=== PATIENT | male | born 1995 | race Caucasian/White ===

== ENCOUNTER 2019-10-15 03:25 | Emergency (ER) | payer OTHER ==
--- NOTE | 2019-10-15 03:55 | PDOC ---
Attending Attestation - Resident Resident Name: TammyRaolorenaSamlymatthew - ED Attending Attestation I have performed the following: I have examined & evaluated the patient, The case was reviewed & discussed with the resident, I agree w/resident's findings & plan - HPI HPI: 10/15/19 04:00 Pt comes with CP - Physicial Exam PE: 10/15/19 04:00 Normal exam Agree with resident exam - Medical Decision Making 10/15/19 05:33 Pt is obese; all labs are normal; HCT is elevated. Pt dehydrated; he will be given a L of saline and he will be discharged home. EKG normal CXR normal Pt;s exam normal He was advised to stop drugs and to eat healthfully Heart Score/ECG Review - ECG Intrepretation Rhythm: Regular Rhythm - [place]: Normal - P and NE Prominent R with upright T in V1 (true posterior PA): No Delta Wave(s) Present: No WPW: No - QRS Poor R Wave Progression: No Q Wave Present: No - ECG Impressions Normal ECG: Yes Non-specific ST Elevation: No Ischemic Changes: No Bradycardia: No Torsades vashti Pointes: No WPW: No
--- NOTE | 2019-10-15 03:55 | PDOC ---
History of Present Illness <Evelia Wright - Last Filed: 10/15/19 05:35> - History of Present Illness Initial Comments: 10/15/19 04:12 23y.o M hx of drug abuse, anxiety, depression and possible bipolar disorder presents to the ER with chest pain and left sided tremors. Chest pain began about 2 hrs ago. He smoked some K2 prior 2 hrs prior to episode. Tremors have now resolved ,but he still feels a pressure like sensation in his chest. Pain is non-radiating not aware of any exacerbating or relieving factors. Similiar incident happened yesterday and resolved. He endorses cough, subjective fever.He denies using any other drugs/pill/alcohol, nausea, vomiting, shortness of breath. <Anisha Whitehead - Last Filed: 10/15/19 06:02> - General Stated Complaint: CHEST DISCOMFORT Time Seen by Provider: 10/15/19 03:53 Past History <Evelia Wright - Last Filed: 10/15/19 05:35> - Past Medical History Asthma: No Cardiac Disorders: No COPD: No Diabetes: No GI Disorders: No Disorders: No HTN: No Kidney Stones: No Seizures: No - Surgical History Abdominal Surgery: No Appendectomy: No Cardiac Surgery: No Cholecystectomy: No Lung Surgery: No Neurologic Surgery: No Orthopedic Surgery: No - Reproductive History Testicular Surgery: No - Immunization History Immunization Up to Date: Yes - Psycho Social/Smoking Cessation Hx Smoking Status: No Smoking History: Current every day smoker Have you smoked in the past 12 months: Yes Number of Cigarettes Smoked Daily: 20 'Breaking Loose' booklet given: 02/22/16 Hx Alcohol Use: No Drug/Substance Use Hx: Yes Substance Use Type: Heroin Hx Substance Use Treatment: No <Anisha Whitehead - Last Filed: 10/15/19 06:02> - Past Medical History Allergies/Adverse Reactions: Allergies Allergy/AdvReac Type Severity Reaction Status Date / Time No Known Allergies Allergy Verified 02/22/16 21:32 Home Medications: Ambulatory Orders NK [No Known Home Medication] 02/22/16 Review of Systems - Review of Systems Constitutional: Yes: Fever. No: Chills HEENTM: No: Eye Pain, Blurred Vision Respiratory: Yes: Cough, Wheezing Cardiac (ROS): Yes: Palpitations. No: Lightheadedness ABD/GI: No: Nausea, Vomiting : No: Burning, Dysuria Musculoskeletal: No: Back Pain, Muscle Weakness Integumentary: No: Bruising, Change in Color Neurological: No: Headache, Numbness Psychiatric: Yes: Anxiety, Depression Hematologic/Lymphatic: No: Anemia, Easy Bleeding <Anisha Whitehead - Last Filed: 10/15/19 06:02> *Physical Exam - Vital Signs Last Vital Signs Temp Pulse Resp BP Pulse Ox 98.3 F 77 18 132/61 98 10/15/19 03:25 10/15/19 03:25 10/15/19 03:25 10/15/19 03:25 10/15/19 03:25 <Evelia Wright - Last Filed: 10/15/19 05:35> - Physical Exam Comments: 10/15/19 04:21 PE: GENERAL: Awake, alert, and fully oriented, in no acute distress HEAD: No signs of trauma, normocephalic, atraumatic EYES: EOMI, sclera anicteric, conjunctiva clear ENT: Auricles normal inspection, hearing grossly normal, nares patent, oropharynx clear without exudates. Moist mucosa NECK: Normal ROM, supple, JVD, or masses LUNGS: No distress, speaks full sentences, wheezing in both lung guzman. HEART: Regular rate and rhythm, normal S1 and S2, no murmurs, rubs or gallops, ABDOMEN: Soft, nontender, normoactive bowel sounds. EXTREMITIES : Normal inspection, Normal range of motion, no edema. No clubbing or cyanosis NEUROLOGICAL: Cranial nerves II through XII grossly intact. Normal speech, normal gait, no focal sensorimotor deficits SKIN: Warm, Dry, normal turgor, no rashes or lesions noted <Anisha Whitehead - Last Filed: 10/15/19 06:02> ED Treatment Course - LABORATORY CBC & Chemistry Diagram: 10/15/19 04:30 10/15/19 04:30 - ADDITIONAL ORDERS Additional order review: Laboratory Results 10/15/19 10/15/19 04:30 04:30 Sodium 138 Potassium 3.9 Chloride 107 Carbon Dioxide 29 Anion Gap 2 L BUN 9.5 Creatinine 0.9 Est GFR (CKD-EPI)AfAm 140.02 Est GFR (CKD-EPI)NonAf 120.81 Random Glucose 98 Calcium 9.1 Total Bilirubin 0.8 AST 22 ALT 51 Alkaline Phosphatase 117 Creatine Kinase 91 Troponin I < 0.02 Total Protein 7.4 Albumin 4.0 10/15/19 04:30 RBC 5.31 MCV 93.3 MCHC 33.6 RDW 13.5 MPV 7.7 Neutrophils % 72.1 Lymphocytes % 16.9 Monocytes % 8.2 Eosinophils % 2.3 Basophils % 0.5 - Medications Given in the ED: ED Medications Discontinued Medications Generic Name Dose Route Start Last Admin Trade Name Freq PRN Reason Stop Dose Admin Albuterol/Ipratropium 1 amp 10/15/19 04:24 10/15/19 05:00 Duoneb - NEB 10/15/19 04:25 Not Given ONCE ONE Sodium Chloride 1,000 ml 10/15/19 05:23 10/15/19 05:28 Normal Saline - IV 10/15/19 05:24 1,000 ml ONCE ONE Administration <Evelia Wright - Last Filed: 10/15/19 05:35> - LABORATORY CBC & Chemistry Diagram: 10/15/19 04:30 10/15/19 04:30 <Anisha Whitehead - Last Filed: 10/15/19 06:02> Medical Decision Making - Medical Decision Making 10/15/19 04:23 23y.o M hx of drug abuse, anxiety, depression and possible bipolar disorder presents to the ER with chest pain and left sided tremor cbc, cmp, utox, ekg, troponin, cpk, cxr, 10/15/19 04:27 EKG: normal sinus rhythm, rightward axis , borderline EKG <Anisha Whitehead - Last Filed: 10/15/19 06:02> Discharge - Discharge Information Problems reviewed: Yes <Evelia Wright - Last Filed: 10/15/19 05:35> - Discharge Information Problems reviewed: Yes - Admission No <Anisha Whitehead - Last Filed: 10/15/19 06:02> - Discharge Information Clinical Impression/Diagnosis: Polysubstance (excluding opioids) dependence Obesity Qualifiers: Obesity type: unspecified obesity type Obesity classification: unspecified obesity classification Serious obesity comorbidity presence: without serious comorbidity Qualified Code(s): E66.9 - Obesity, unspecified Condition: Stable Disposition: HOME - Patient Discharge Instructions Patient Printed Discharge Instructions: Eating a Diet Rich in Fruits and Vegetables, Overweight in Adults, Substance Use Disorder
[2019-10-15 04:08] VITALS: BP 132/61; PULSE 77; TEMP 98.3; BMI 28.6
[2019-10-15] MEDS ORDERED: ALBUTEROL SO4 2.5/IPRATROPIUM 0.5 INH SOL 3 ML VIAL.NEB. NEB ONE (04:24)
[2019-10-15 04:49] LABS: BASO % 0.5 % (0-2.0); EOS % 2.3 % (0-4.5); HEMATOCRIT 49.6 % (35.4-49); HEMOGLOBIN 16.7 GM/dL (11.7-16.9); LYMPH % 16.9 % (8-40); MCH 31.4 pg (25.7-33.7); MCHC 33.6 g/dl (32.0-35.9); MEAN CELL VOLUME 93.3 fl (80-96); MEAN PLT VOLUME 7.7 fl (7.5-11.1); MONO % 8.2 % (3.8-10.2); NEUT % 72.1 % (42.8-82.8); PLATELET COUNT 287 K/MM3 (134-434); RBC 5.31 M/mm3 (4.00-5.60); RDW 13.5 % (11.9-15.9); WHITE BLOOD COUNT 10.3 K/mm3 (4.0-10.0)
[2019-10-15 05:16] LABS: BILIRUBIN,TOTAL 0.8 mg/dL (0.2-1); BLOOD UREA NITROGEN 9.5 mg/dL (7-18); CALCIUM 9.1 mg/dL (8.5-10.1); CREATININE 0.9 mg/dL (0.55-1.3); POTASSIUM 3.9 mmol/L (3.5-5.1); TOT PROT 7.4 g/dl (6.4-8.2)
[2019-10-15] MEDS ORDERED: SODIUM CHLORIDE 0.9% 500 ML INFUS.BAG IV ONE (05:23)
[2019-10-15 07:22] LABS: COCAINE, UR NEGATIVE ng/ml (CUTOFF=300); METHADONE, UR NEGATIVE ng/ml (CUTOFF=300); OPIATES, URI NEGATIVE ng/ml (CUTOFF=300); PHENCYCLIDINE,URINE NEGATIVE ng/ml (CUTOFF=25); URINE AMPHETAMINES NEGATIVE ng/ml (CUTOFF=500); URINE BARBITURATES NEGATIVE ng/ml (CUTOFF=200); URINE BENZODIAZEPINES NEGATIVE ng/ml (CUTOFF=200)
--- NOTE | 2019-10-15 13:46 | EKG ---
Test Reason : Blood Pressure : / mmHG Vent. Rate : 074 BPM Atrial Rate : 074 BPM P-R Int : 156 ms QRS Dur : 086 ms QT Int : 376 ms P-R-T Axes : 062 085 027 degrees QTc Int : 417 ms NORMAL SINUS RHYTHM WITH SINUS ARRHYTHMIA NORMAL ECG WHEN COMPARED WITH ECG OF 12-JUN-2011 02:41, PREVIOUS ECG IS PRESENT Confirmed by MD Yvan, Jozef ([id number]) on 10/15/2019 1:45:37 PM Referred By: Confirmed By:Jozef Santoro MD
== END 2019-10-15 06:23 | disposition home or self-care (01) ==
LOC: JER 03:25
DX: F19.20 Other psychoactive substance dependence, uncomplicated (principal); R25.1 Tremor, unspecified; E66.9 Obesity, unspecified; Z68.28 Body mass index [BMI] 28.0-28.9, adult; F41.8 Other specified anxiety disorders; F32.9 Major depressive disorder, single episode, unspecified; F17.210 Nicotine dependence, cigarettes, uncomplicated
CPT/HCPCS: 36415; 71045-TC-FY; 80053; 80307; 82550; 84484; 85025; 93005; 93010; 99284-25

== ENCOUNTER 2019-12-24 02:24 | Emergency (ER) | payer OTHER ==
[2019-12-24 02:38] VITALS: TEMP 97.1; BMI 26.6
--- NOTE | 2019-12-24 02:50 | PDOC ---
Attending Attestation - Resident Resident Name: Abdi Kumar - ED Attending Attestation I have performed the following: I have examined & evaluated the patient, The case was reviewed & discussed with the resident, I agree w/resident's findings & plan - HPI HPI: 12/24/19 04:24 Pt comes with palpitations and a feeling that his heart is coming out of his chest. He has no other complaints. States that he used ecstasy and wants to make sure he is ok. - Physicial Exam PE: 12/24/19 04:25 Normal exam Normal vitals Heart [id number] Lungs CTAb abd soft NT ND +BS no flank pain - Medical Decision Making 12/24/19 04:25 EKG NSR; pt reassured We will not draw labs, as pt has normal labs from back in Nov as well as CXR that is normal Heart Score/ECG Review - ECG Intrepretation Rhythm: Regular Rhythm - Ogema Ogema: Normal - P and VT Delta Wave(s) Present: No WPW: No - QRS Poor R Wave Progression: No Q Wave Present: No - ST and T Early Repolarization: No Non Specific ST-T Wave changes: No Flattened T Waves: No Prolonged Q-T Interval: No - ECG Impressions Normal ECG: Yes Non-specific ST Elevation: No Ischemic Changes: No Bradycardia: No Torsades vashti Pointes: No WPW: No
--- NOTE | 2019-12-24 03:45 | PDOC ---
History of Present Illness <Evelia Wright - Last Filed: 12/24/19 04:22> - General History Source: Patient Exam Limitations: No Limitations - History of Present Illness Initial Comments: 12/24/19 03:38 24 yo male pmh multiple substance abuse including Heroin, extacy and marijuana ( non IV drug abuser) presents to the ED for chest palpitations and feeling flushed. Pt states he took 3 pills of extacy today, noted palpitations and feeling flushed that resolved prior to EMS arrival. Symptoms have not recurred, pt states he feels well and is at baseline. Pt admits to similar episode 2 days ago after using extacy and K2, went to [facility] and was discharged after resolution of symptoms. Denies recent illness, F/C/N/V, hx or fhx of cardiac conditions, back pain, abdominal pain, SOB, changes in bowel or bladder habits <Abdi Kumar - Last Filed: 12/24/19 04:31> - General Chief Complaint: Chest Pain Stated Complaint: DRUG INGESTION/PALPITATIONS Time Seen by Provider: 12/24/19 02:39 Past History <Evelia Wright - Last Filed: 12/24/19 04:22> - Past Medical History Asthma: No Cardiac Disorders: No COPD: No Diabetes: No GI Disorders: No Disorders: No HTN: No Kidney Stones: No Seizures: No - Surgical History Abdominal Surgery: No Appendectomy: No Cardiac Surgery: No Cholecystectomy: No Lung Surgery: No Neurologic Surgery: No Orthopedic Surgery: No - Reproductive History Testicular Surgery: No - Immunization History Immunization Up to Date: Yes - Psycho Social/Smoking Cessation Hx Smoking Status: No Smoking History: Unknown if ever smoked Have you smoked in the past 12 months: Yes Number of Cigarettes Smoked Daily: 20 'Breaking Loose' booklet given: 02/22/16 Hx Alcohol Use: Yes Drug/Substance Use Hx: Yes Substance Use Type: Heroin Hx Substance Use Treatment: No <Abdi Kumar - Last Filed: 12/24/19 04:31> - Past Medical History Allergies/Adverse Reactions: Allergies Allergy/AdvReac Type Severity Reaction Status Date / Time No Known Allergies Allergy Verified 02/22/16 21:32 Home Medications: Ambulatory Orders NK [No Known Home Medication] 02/22/16 Review of Systems - Review of Systems Constitutional: No: Chills, Fever HEENTM: No: Blurred Vision, Double Vision Respiratory: No: Shortness of Breath Cardiac (ROS): Yes: Palpitations (resolved). No: Chest Pain, Syncope ABD/GI: No: Constipated, Diarrhea, Nausea, Vomiting : No: Burning, Dysuria, Frequency, Flank Pain Musculoskeletal: No: Back Pain Integumentary: No: Change in Color Neurological: No: Headache, Numbness, Paresthesia, Weakness <Abdi Kumar - Last Filed: 12/24/19 04:31> *Physical Exam - Vital Signs Last Vital Signs Temp Pulse Resp BP Pulse Ox 97.1 F L 96 H 18 160/99 99 12/24/19 02:34 12/24/19 02:34 12/24/19 02:34 12/24/19 02:34 12/24/19 02:34 <Evelia Wright - Last Filed: 12/24/19 04:22> - Vital Signs Last Vital Signs Temp Pulse Resp BP Pulse Ox 97.1 F L 96 H 18 160/99 99 12/24/19 02:34 12/24/19 02:34 12/24/19 02:34 12/24/19 02:34 12/24/19 02:34 - Physical Exam General Appearance: Yes: Nourished, Appropriately Dressed. No: Apparent Distress HEENT: positive: EOMI, ALLI Neck: positive: Supple. negative: Carotid bruit Respiratory/Chest: positive: Lungs Clear, Normal Breath Sounds. negative: Respiratory Distress, Accessory Muscle Use, Rapid RR, Crackles, Rales, Rhonchi, Stridor, Wheezing Cardiovascular: positive: Regular Rhythm, Regular Rate, S1, S2. negative: Edema , JVD, Murmur Vascular Pulses: Dorsalis-Pedis (R): 4+, Doralis-Pedis (L): 4+ Gastrointestinal/Abdominal: positive: Flat, Soft. negative: Pulsatile Mass, Protuberent, Distended, Guarding, Rebound, Tenderness Musculoskeletal: negative: CVA Tenderness Extremity: positive: Normal Capillary Refill, Normal Inspection, Normal Range of Motion Integumentary: positive: Normal Color, Dry, Warm Neurologic: positive: Fully Oriented, Alert, Normal Mood/Affect, Normal Response <Abdi Kumar - Last Filed: 12/24/19 04:31> Medical Decision Making - Medical Decision Making 12/24/19 03:45 24 yo male pmh multiple substance abuse including Heroin, extacy and marijuana ( non IV drug abuser) presents to the ED for chest palpitations and feeling flushed. Pt states he took 3 pills of extacy today, noted palpitations and feeling flushed that resolved prior to EMS arrival. Symptoms have not recurred, pt states he feels well and is at baseline. Pt admits to similar episode 2 days ago after using extacy and K2, went to [facility] and was discharged after resolution of symptoms. Denies recent illness, F/C/N/V, hx or fhx of cardiac conditions, back pain, abdominal pain, SOB, changes in bowel or bladder habits vitals WNL Pt well appearing, states symptoms resolved and feels well to go home Pending EKG No labs indicated at this time due to resolution of symptoms, no CP and likely cause of symptoms 12/24/19 04:28 Pt seen 09/2019 for similar episode, labs WNL including trops and CXR. EKG today NSR without signs of ischemia Pt safe for DC home, strict return precautions and cardiology f/u <Abdi Kumar - Last Filed: 12/24/19 04:31> Discharge - Discharge Information Problems reviewed: Yes - Admission No <Evelia Wright - Last Filed: 12/24/19 04:22> - Discharge Information Problems reviewed: Yes - Admission No <Abdi Kumar - Last Filed: 12/24/19 04:31> - Discharge Information Clinical Impression/Diagnosis: Polysubstance (excluding opioids) dependence, Anxiety, Palpitations Condition: Stable Disposition: HOME - Follow up/Referral Referrals: Carmelo Franco MD [Staff Physician] - - Patient Discharge Instructions Patient Printed Discharge Instructions: DI for Atypical Chest Pain, DI for Palpitations Additional Instructions: Please see your Primary Doctor within the next 48 hours. Stop using non prescribed street drugs. If you have any questions, concerns or if you need assistance, the ER is always open and ready to help you. Call to make an appointment with the Prop Maker referred to you. Return to the ER immediatly for new or concerning symptoms including but not limited to: chest pain, difficulty breathing. Thank you
[2019-12-24 04:23] VITALS: BP 140/78; PULSE 84
--- NOTE | 2019-12-24 13:56 | EKG ---
Test Reason : Blood Pressure : / mmHG Vent. Rate : 082 BPM Atrial Rate : 082 BPM P-R Int : 140 ms QRS Dur : 104 ms QT Int : 354 ms P-R-T Axes : 080 106 041 degrees QTc Int : 413 ms NORMAL SINUS RHYTHM RIGHTWARD AXIS LEFT VENTRICULAR HYPERTROPHY ABNORMAL ECG Confirmed by MD MANUEL, YANETH ([id number]) on 12/24/2019 1:55:42 PM Referred By: Confirmed By:YANETH JACKSON MD
== END 2019-12-24 04:24 | disposition home or self-care (01) ==
LOC: JER 02:24
DX: F19.10 Other psychoactive substance abuse, uncomplicated (principal); F16.10 Hallucinogen abuse, uncomplicated; F41.9 Anxiety disorder, unspecified; R00.2 Palpitations
CPT/HCPCS: 93005; 93010; 99283-25

== ENCOUNTER 2019-12-26 16:59 | Emergency (ER) | payer OTHER ==
[2019-12-26 17:18] VITALS: TEMP 98.6; BMI 27.3
--- NOTE | 2019-12-26 18:22 | PDOC ---
History of Present Illness - General Chief Complaint: Substance Abuse Stated Complaint: ADVERSE DRUG REACTION Time Seen by Provider: 12/26/19 18:12 - History of Present Illness Initial Comments: 24 year old Male with PMH of poly substance abuse and multiple psychiatric/ behavioral pathologies presenting for weakness and anxiety directly after smoking a marijuana "blunt". States that he started to smoke and began thinking "loudly" and started feel his mind raced In our ED he states he wasn't feeling well and experienced worsening anxiety and palpitations and decided to lay himself down on the floor. This was witnessed by multiple staff members and there was no mention of head trauma, collapse, or other concerning features. Patient was sleeping when I walked into the room, conversational, and back to his baseline. Denied any current palpitations, chest pains, headache, weakness, or other symptoms. 12/27/19 09:35 Past History - Past Medical History Allergies/Adverse Reactions: Allergies Allergy/AdvReac Type Severity Reaction Status Date / Time No Known Allergies Allergy Verified 02/22/16 21:32 Home Medications: Ambulatory Orders NK [No Known Home Medication] 02/22/16 Asthma: No Cardiac Disorders: No COPD: No Diabetes: No GI Disorders: No Disorders: No HTN: No Kidney Stones: No Seizures: No - Surgical History Abdominal Surgery: No Appendectomy: No Cardiac Surgery: No Cholecystectomy: No Lung Surgery: No Neurologic Surgery: No Orthopedic Surgery: No - Reproductive History Testicular Surgery: No - Immunization History Immunization Up to Date: Yes - Psycho Social/Smoking Cessation Hx Smoking Status: No Smoking History: Never smoked Have you smoked in the past 12 months: No Number of Cigarettes Smoked Daily: 20 Information on smoking cessation initiated: No 'Breaking Loose' booklet given: 02/22/16 Hx Alcohol Use: Yes Drug/Substance Use Hx: Yes Substance Use Type: Heroin Hx Substance Use Treatment: No Review of Systems - Review of Systems Able to Perform ROS?: Yes Constitutional: Yes: Weakness. No: Chills, Diaphoresis, Fever HEENTM: No: Double Vision, Ear Discharge, Hearing Loss Respiratory: No: Cough, Orthopnea, Shortness of Breath, Wheezing Cardiac (ROS): Yes: Palpitations. No: Chest Pain, Edema, Chest Tightness ABD/GI: No: Nausea, Vomiting : No: Burning, Dysuria, Discharge Musculoskeletal: Yes: Muscle Weakness. No: Joint Pain Integumentary: No: Dryness, Erythema Neurological: Yes: Weakness. No: Headache, Numbness, Tingling Psychiatric: Yes: Anxiety, Depression, Emotional Problems, Mood Swings *Physical Exam - Vital Signs Last Vital Signs Temp Pulse Resp BP Pulse Ox 98.6 F 93 H 22 H 122/91 96 12/26/19 17:07 12/26/19 17:07 12/26/19 17:07 12/26/19 17:07 12/26/19 17:07 - Physical Exam General Appearance: Yes: Nourished, Appropriately Dressed. No: Apparent Distress HEENT: positive: Normal ENT Inspection, Normal Voice, Pharynx Normal Neck: positive: Normal Thyroid. negative: Tender, Rigid, Supple Respiratory/Chest: positive: Lungs Clear, Normal Breath Sounds. negative: Chest Tender, Respiratory Distress, Accessory Muscle Use Cardiovascular: positive: Regular Rhythm, Regular Rate Gastrointestinal/Abdominal: positive: Normal Bowel Sounds, Flat, Soft. negative : Tender, Guarding Musculoskeletal: positive: Normal Inspection. negative: Decreased Range of Motion Extremity: positive: Normal Capillary Refill, Normal Inspection, Normal Range of Motion, Pelvis Stable. negative: Tender Integumentary: positive: Normal Color, Dry, Warm, Bruising Neurologic: positive: Fully Oriented, Alert, Normal Mood/Affect, Normal Response , Motor Strength 5/5 Deep Tendon Reflexes: Knee (L): 1+ Medical Decision Making - Medical Decision Making 24 year old male with poysbstance abuse presenting for anxiety and palpitations. First EKG with lead misplacement (inversions in V2) so repeat EKG performed demonstrating rate 67, ND 150 , QRS 90, QTc 412 , normal axis with mild t wave flattening compared to EKG from 4-5 months prior. . Patient is much improved and will go home, rest, and then go to detox afterwards. 12/26/19 18:57 Discharge - Discharge Information Problems reviewed: Yes Clinical Impression/Diagnosis: Marijuana use Condition: Stable Disposition: HOME - Admission No - Follow up/Referral Referrals: VANESA CHINO [Provider Group] - Patient Discharge Instructions Patient Printed Discharge Instructions: DI for Palpitations Additional Instructions: Please stop smoking marijuana or using other drugs. Please go to detox tomorrow. Please set up an appointment for the primary care physician to follow up for your EKG. Please return to the ED if you have any new or worsening problems. - Post Discharge Activity
--- NOTE | 2019-12-26 19:07 | PDOC ---
Documentation entered by Divine Rodriguez SCRIBE, acting as scribe for Joyce Frazier MD. Joyce Frazier MD: This documentation has been prepared by the Jennifer richard Nirvannie, SCRIBE, under my direction and personally reviewed by me in its entirety. I confirm that the documentation accurately reflects all work, treatment, procedures, and medical decision making performed by me. Attending Attestation - Resident Resident Name: Florinda Walls - ED Attending Attestation I have performed the following: I have examined & evaluated the patient, The case was reviewed & discussed with the resident, I agree w/resident's findings & plan, Exceptions are as noted - HPI HPI: 12/26/19 18:39 The patient is a 24 year old male, with a significant past medical history of multiple substance abuse including Heroin, ecstasy and marijuana (non IV drug abuser), who presents to the emergency department with palpitations. - Physicial Exam PE: 12/26/19 18:39 GENERAL: Well-appearing, well-nourished. No apparent distress. HEENT: Normocephalic, atraumatic. PERRL, EOM intact. CARDIOVASCULAR: Normal S1, S2. Regular rate and rhythm. PULMONARY: Clear to auscultation bilaterally. ABDOMEN: Soft, non-distended, non-tender. EXTREMITIES: Normal ROM in all four extremities. No gross deformities. SKIN: Warm, dry. No rash NEUROLOGICAL: No focal neurological deficits. - Medical Decision Making 12/26/19 19:05 EKG does not show any signs of acute ischemia Patient has been using street drugs rather than taking his prescription medicines for his mood disorder Patient was encouraged to follow-up with [facility] outpatient treatment center for his bipolar symptoms At this time he has no acute jomar and no suicidal ideation
[2019-12-26 19:23] VITALS: BP 122/69; PULSE 87
--- NOTE | 2019-12-27 11:38 | EKG ---
Test Reason : Blood Pressure : / mmHG Vent. Rate : 080 BPM Atrial Rate : 080 BPM P-R Int : 144 ms QRS Dur : 092 ms QT Int : 374 ms P-R-T Axes : 074 095 048 degrees QTc Int : 431 ms NORMAL SINUS RHYTHM RIGHTWARD AXIS BORDERLINE ECG WHEN COMPARED WITH ECG OF 24-DEC-2019 03:34, ST NO LONGER ELEVATED IN ANTERIOR LEADS Confirmed by Linus Pena MD ([id number]) on 12/27/2019 11:38:11 AM Referred By: Confirmed By:Linus Pena MD
--- NOTE | 2019-12-27 11:38 | EKG ---
Test Reason : Blood Pressure : / mmHG Vent. Rate : 067 BPM Atrial Rate : 067 BPM P-R Int : 150 ms QRS Dur : 090 ms QT Int : 390 ms P-R-T Axes : 068 089 045 degrees QTc Int : 412 ms NORMAL SINUS RHYTHM NORMAL ECG Confirmed by Linus Pena MD ([id number]) on 12/27/2019 11:37:52 AM Referred By: Confirmed By:Linus Pena MD
== END 2019-12-26 19:20 | disposition home or self-care (01) ==
LOC: JER 16:59
DX: F12.10 Cannabis abuse, uncomplicated (principal); R00.2 Palpitations; F41.9 Anxiety disorder, unspecified
CPT/HCPCS: 93005; 93010; 99282-25

== ENCOUNTER 2020-01-03 20:21 | Emergency (ER) | payer OTHER ==
[2020-01-03 20:58] VITALS: TEMP 98.1; BMI 26.3
--- NOTE | 2020-01-03 22:22 | PDOC ---
History of Present Illness - General Chief Complaint: Palpitations Stated Complaint: PALPITATIONS Time Seen by Provider: 01/03/20 22:13 - History of Present Illness Initial Comments: 01/03/20 22:26 The patient is a 24 year old male with a history of polysubstance abuse, alcohol use, anxiety who presents for evaluation of palpitations. The patient reports smoking marijuana and using alcohol earlier today. He noted an episode of anxiety with associated palpitations at that time that has since resolved prompting his presentation to the ED for further evaluation. He states that he is currently asymptomatic. He has had several similar presentations in the past with negative work ups. The patient otherwise denies fevers, chills, SOB, chest pain, nausea, vomiting, abdominal pain, or changes with urination or bowel movements. Past History - Past Medical History Allergies/Adverse Reactions: Allergies Allergy/AdvReac Type Severity Reaction Status Date / Time No Known Allergies Allergy Verified 01/03/20 20:58 Home Medications: Ambulatory Orders NK [No Known Home Medication] 02/22/16 Asthma: No Cardiac Disorders: No COPD: No Diabetes: No GI Disorders: No Disorders: No HTN: No Kidney Stones: No Seizures: No - Surgical History Abdominal Surgery: No Appendectomy: No Cardiac Surgery: No Cholecystectomy: No Lung Surgery: No Neurologic Surgery: No Orthopedic Surgery: No - Reproductive History Testicular Surgery: No - Immunization History Immunization Up to Date: Yes - Psycho Social/Smoking Cessation Hx Smoking Status: No Smoking History: Never smoked Have you smoked in the past 12 months: No Number of Cigarettes Smoked Daily: 20 Information on smoking cessation initiated: No 'Breaking Loose' booklet given: 02/22/16 Hx Alcohol Use: No Drug/Substance Use Hx: No Substance Use Type: Heroin Hx Substance Use Treatment: No Review of Systems - Review of Systems Comments:: 01/03/20 22:28 Constitutional: No fevers, chills, fatigue, malaise HEENT: No Rhinorrhea, nasal congestion, visual changes Cardiovascular: Palpitations. No chest pain, syncope, lightheadedness Respiratory: No Cough, SOB, Hemoptysis, Gastrointestinal: No Abdominal pain, Nausea, Vomiting, Constipation, Diarrhea, Melena Genitourinary: No Dysuria, Frequency, Urgency, Hesitancy, Hematuria, Flank pain Musculoskeletal: No Myalgia, arthralgia Skin: No rashes, itching, bruising, pallor Neurologic: No Headache, Dizziness, Numbness, Weakness, or Tingling Psychiatric: No Hallucinations. No SI or HI *Physical Exam - Vital Signs Last Vital Signs Temp Pulse Resp BP Pulse Ox 98.1 F 93 H 18 121/72 100 01/03/20 20:56 01/03/20 20:56 01/03/20 20:56 01/03/20 20:56 01/03/20 20:56 - Physical Exam 01/03/20 22:28 General Appearance: Nourished. No Apparent Distress HEENT: EOMI, ALLI. No Pharyngeal Erythema, Tonsillar Exudate, Tonsillar Erythema Neck: No Cervical Lymphadenopathy Respiratory/Chest: Lungs Clear, Normal Breath Sounds. No Crackles, Rales, Rhonchi, Wheezing Cardiovascular: Regular Rhythm, Regular Rate. No Murmur, Gallops, Rubs Gastrointestinal/Abdominal: Normal Bowel Sounds, Soft. No Guarding, Rebound, Tenderness Musculoskeletal: No CVA Tenderness Extremity: Normal Capillary Refill Integumentary: Normal Color, Dry, Warm Neurologic: Fully Oriented, Alert, Normal Mood/Affect, Normal Response, Heart Score/ECG Review #1 ECG reviewed & interpreted by me at: 22:28 General ECG Interpretation: Sinus Rhythm, Normal Rate, Normal Intervals, No acute ischemic changes Compared to previous ECG there are: No significant change Medical Decision Making - Medical Decision Making 01/03/20 22:29 The patient is a 24 year old male with a history of polysubstance abuse, alcohol use, anxiety who presents for evaluation of palpitations. Given the patient's history and physical exam, it is likely the patient's symptoms were due to an anxiety attack vs. related to his substance use. The patient appears clinically well on exam here and resting comfortable currently asymptomatic. We are comfortable discharging the patient home in stable condition. Patient made aware of impression and plan, return precautions discussed including but not limited to worsening pain or symptoms, fevers, or signs of infection, chest pain, respiratory distress, inability to tolerate oral intake, dehydration, syncope, or neurologic changes. The patient is to follow up with PMD and specialist as recommended within 1 week, follow up information provided and the patient will call for an appointment. The patient is to take medications as instructed for duration of time and continue with supportive care, avoid triggers and precipitants. Patient is safe for outpatient follow-up. Discharge - Discharge Information Problems reviewed: Yes Clinical Impression/Diagnosis: Palpitations, Anxiety Condition: Stable Disposition: HOME - Admission No - Follow up/Referral Referrals: Bimal Ramos MD [Staff Physician] - - Patient Discharge Instructions Patient Printed Discharge Instructions: DI for Palpitations Additional Instructions: 1) Please follow-up with your primary care doctor in the next 2-3 days. Please call tomorrow to schedule a follow up appointment. If you cannot follow up with your doctor within 1 week please return to the Emergency Department for any urgent issues. 2) Your EKG results were normal here in the ER. 3) If you have any worsening of symptoms or any other concerns, please return to the ER immediately. Return if worsening symptoms including fevers, headache, vomiting, visual or hearing disturbances, abdominal pain, chest pain, shortness of breath, syncope, dehydration, inability to take things by mouth/vomiting, altered mental status, or worsening concerning symptoms. 4) Please continue taking your home medications as directed. Side effects may include upset stomach, abdominal pain, vomiting, or diarrhea. Do not drink alcohol with your medications. - Post Discharge Activity
--- NOTE | 2020-01-03 22:23 | PDOC ---
Attending Attestation - Resident Resident Name: Valdemar Watson - ED Attending Attestation I have performed the following: I have examined & evaluated the patient, The case was reviewed & discussed with the resident, I agree w/resident's findings & plan - HPI HPI: 01/03/20 22:22 see resident hpi - Physicial Exam PE: 01/03/20 22:22 see resident exam - Medical Decision Making 01/03/20 22:22 24-year-old male complaining of palpitations after smoking marijuana and ingesting alcohol now resolved Patient is sitting comfortably talking to his friend on the edge of the bed and currently asymptomatic EKG shows no acute changes Will DC with recommended outpatient follow-up
[2020-01-03 23:00] VITALS: BP 122/66; PULSE 89
--- NOTE | 2020-01-04 15:15 | EKG ---
Test Reason : Blood Pressure : / mmHG Vent. Rate : 089 BPM Atrial Rate : 089 BPM P-R Int : 156 ms QRS Dur : 088 ms QT Int : 342 ms P-R-T Axes : 066 082 050 degrees QTc Int : 416 ms NORMAL SINUS RHYTHM NORMAL ECG WHEN COMPARED WITH ECG OF 26-DEC-2019 18:57, NO SIGNIFICANT CHANGE WAS FOUND Confirmed by SEGUN LUGO MD ([id number]) on 01/04/2020 3:15:06 PM Referred By: Confirmed By:SEGUN LUGO MD
== END 2020-01-03 23:01 | disposition home or self-care (01) ==
LOC: JER 20:21
DX: R00.2 Palpitations (principal); F41.9 Anxiety disorder, unspecified; F19.10 Other psychoactive substance abuse, uncomplicated; F10.99 Alcohol use, unspecified with unspecified alcohol-induced disorder
CPT/HCPCS: 93005; 93010; 99283-25

== ENCOUNTER 2021-05-15 19:24 | Emergency (ER) | payer OTHER ==
[2021-05-15 19:35] VITALS: BP 138/79; PULSE 103; TEMP 98.3; BMI 23.1
[2021-05-15] MEDS ORDERED: IBUPROFEN 600 MG TABLET (FP) PO ONE ×2 (20:02→20:28)
== END 2021-05-15 20:50 | disposition home or self-care (01) ==
LOC: JER 19:24 → JERFT 19:24
DX: M79.645 Pain in left finger(s) (principal)
CPT/HCPCS: 73140-TC-LT-FY; 99284-25

== ENCOUNTER 2022-08-13 19:02 | Observation (INO) | payer OTHER ==
[2022-08-13] MEDS ORDERED: ALBUTEROL SO4 2.5/IPRATROPIUM 0.5 INH SOL 3 ML VIAL.NEB. NEB ONE ×3 (19:53→20:54)
[2022-08-13] MEDS ORDERED: DEXAMETHASONE SOD PHOSPHATE 10 MG/1 ML VIAL IVPUSH ONE (20:49)
[2022-08-13] MEDS ORDERED: SODIUM CHLORIDE 0.9% 500 ML INFUS.BAG IV ONE ×2 (20:52→23:16)
[2022-08-13] MEDS ORDERED: DEXAMETHASONE SOD PHOSPHATE 4 MG/1 ML VIAL ONE (20:54)
[2022-08-13 21:55] LABS: VENOUS BASE EXCESS -7.4 mmol/L (-2-2); VENOUS O2 SATURATION 83.6 % (70-80); VENOUS PCO2 25.1 mmHg (38-52); VENOUS PH 7.414 (7.310-7.410)
[2022-08-13 22:04] LABS: HEMATOCRIT 43.8 % (35.4-49); HEMOGLOBIN 14.8 GM/dL (11.7-16.9); MCHC 33.7 g/dl (32.0-35.9); MEAN CELL VOLUME 91.8 fl (80-96); MEAN PLT VOLUME 7.8 fl (7.5-11.1); PLATELET COUNT 261 10^3/uL (134-434); RBC 4.77 M/mm3 (4.00-5.60); RDW 13.1 % (11.9-15.9); WHITE BLOOD COUNT 23.8 K/mm3 (4.0-10.0)
[2022-08-13 22:19] LABS: ALBUMIN 4.2 g/dl (3.4-5.0); CALCIUM 9.4 mg/dL (8.5-10.1)
[2022-08-13 22:22] LABS: CREATININE 0.8 mg/dL (0.55-1.3)
[2022-08-13 22:24] LABS: BILIRUBIN,TOTAL 0.9 mg/dL (0.2-1); TOT PROT 7.6 g/dl (6.4-8.2)
[2022-08-13 23:06] LABS: ANISOCYTOSIS 0; MACROCYTOSIS 0; PLATELET ESTIMATE NORMAL
[2022-08-13] MEDS ORDERED: ALBUTEROL SO4 0.083% IH SOL 2.5 MG/3 ML VIAL.NEB. NEB ONE (23:56)
[2022-08-14] MEDS ORDERED: ALBUTEROL SO4 0.083% IH SOL 2.5 MG/3 ML VIAL.NEB. NEB ONE ×3 (00:07→01:06)
[2022-08-14 00:15] LABS: HEMATOCRIT 42.2 % (35.4-49); HEMOGLOBIN 14.4 GM/dL (11.7-16.9); MCH 31.3 pg (25.7-33.7); MCHC 34.1 g/dl (32.0-35.9); MEAN CELL VOLUME 91.6 fl (80-96); MEAN PLT VOLUME 7.2 fl (7.5-11.1); PLATELET COUNT 245 10^3/uL (134-434); RBC 4.61 M/mm3 (4.00-5.60); RDW 13.1 % (11.9-15.9); WHITE BLOOD COUNT 24.7 K/mm3 (4.0-10.0)
[2022-08-14] MEDS ORDERED: CEFTRIAXONE 1,000 MG in DEXTROSE 5%-WATER - 50 ML IVPB ONE (01:10)
[2022-08-14] MEDS ORDERED: AZITHROMYCIN 500 MG TABLET PO ONE (01:10)
[2022-08-14] MEDS ORDERED: CEFTRIAXONE 1 GM/50 ML BAG ONE (01:13)
[2022-08-14 01:17] LABS: ANISOCYTOSIS 0; MACROCYTOSIS 0
[2022-08-14] MEDS ORDERED: AZITHROMYCIN 500 MG TABLET ONE (01:51)
[2022-08-14 07:42] VITALS: RESP 20; BMI 28.2
[2022-08-14] MEDS: ALBUTEROL SO4 2.5/IPRATROPIUM 0.5 INH SOL 3 ML VIAL.NEB. NEB SCH ×3 (07:50→15:32)
[2022-08-14] MEDS: methylPREDNISolone NA SUCC 40 MG/1 ML VIAL IVPUSH SCH ×2 (07:50→10:02)
[2022-08-14 08:21] LABS: URINE APPEARANCE CLEAR; URINE BILIRUBIN NEGATIVE (NEGATIVE); URINE COLOR YELLOW; URINE GLUCOSE (UA) NEGATIVE (NEGATIVE); URINE KETONE NEGATIVE (NEGATIVE); URINE LEUK ESTERASE NEGATIVE (NEGATIVE); URINE NITRITE NEGATIVE (NEGATIVE); URINE PROTEIN NEGATIVE (NEGATIVE); URINE UROBILINOGEN 0.2 mg/dL (0.2-1.0)
[2022-08-14 09:00] LABS: COCAINE, UR NEGATIVE (NEGATIVE); METHADONE, UR NEGATIVE (NEGATIVE); OPIATES, URI NEGATIVE (NEGATIVE); URINE BARBITURATES NEGATIVE (NEGATIVE); URINE BENZODIAZEPINES NEGATIVE (NEGATIVE)
[2022-08-14 09:01] LABS: PHENCYCLIDINE,URINE NEGATIVE (NEGATIVE)
[2022-08-14 09:06] LABS: URINE AMPHETAMINES NEGATIVE (NEGATIVE)
[2022-08-14 09:59] LABS: HEMOGLOBIN 14.6 GM/dL (11.7-16.9); MCH 32.8 pg (25.7-33.7); MCHC 35.7 g/dl (32.0-35.9); MEAN CELL VOLUME 91.6 fl (80-96); MEAN PLT VOLUME 7.3 fl (7.5-11.1); PLATELET COUNT 271 10^3/uL (134-434); RBC 4.47 M/mm3 (4.00-5.60); RDW 13.1 % (11.9-15.9); WHITE BLOOD COUNT 21.9 K/mm3 (4.0-10.0)
[2022-08-14] MEDS ORDERED: BUDESONIDE/FORMETEROL FUMARATE 80/4.5 mcg INHALER IH SCH (10:00)
[2022-08-14 10:13] VITALS: BP 134/69; PULSE 98; TEMP 98.9
[2022-08-14 10:26] LABS: CALCIUM 10.1 mg/dL (8.5-10.1)
[2022-08-14 10:27] LABS: BLOOD UREA NITROGEN 11.3 mg/dL (7-18); MAGNESIUM 2.4 mg/dL (1.8-2.4)
[2022-08-14 10:30] LABS: PHOSPHOROUS 2.9 mg/dL (2.5-4.9)
[2022-08-14 10:31] LABS: BILIRUBIN,TOTAL 0.9 mg/dL (0.2-1)
[2022-08-14 10:32] LABS: TOT PROT 7.6 g/dl (6.4-8.2)
[2022-08-14 11:47] LABS: ANISOCYTOSIS 0; MACROCYTOSIS 0
[2022-08-14] MEDS ORDERED: methylPREDNISolone NA SUCC 40 MG/1 ML VIAL IVPUSH ONE (14:00)
[2022-08-14] MEDS ORDERED: MONTELUKAST NA 5 MG TAB.CHEW PO SCH ×2 (22:00)
[2022-08-15] MEDS ORDERED: AZITHROMYCIN IVPB 250 MG in DEXTROSE 5%-WATER - 250 ML IVPB SCH (01:00)
[2022-08-15] MEDS ORDERED: CEFTRIAXONE 1 GM in DEXTROSE 5%-WATER - 50 ML IVPB SCH (01:00)
[2022-08-15] MEDS ORDERED: predniSONE 20 MG TABLET (UD) PO SCH (10:00)
== END 2022-08-14 16:20 | disposition home or self-care (01) ==
LOC: JER 19:02 → JERBED 08-14 00:49 → J7W 08-14 06:04
PROVIDERS: ADMIT Internal Medicine; ATTEND Nurse Practitioner Acute Care
PROC: 3E0F7GC Introduction of Other Therapeutic Substance into Respiratory Tract, Via Natural or Artificial Opening (ICD-10-PCS; principal; 2022-08-14)
PROC: 3E03329 Introduction of Other Anti-infective into Peripheral Vein, Percutaneous Approach (ICD-10-PCS; 2022-08-14)
PROC: 3E033GC Introduction of Other Therapeutic Substance into Peripheral Vein, Percutaneous Approach (ICD-10-PCS; 2022-08-14)
DX: J45.41 Moderate persistent asthma with (acute) exacerbation (principal); F12.10 Cannabis abuse, uncomplicated; F19.10 Other psychoactive substance abuse, uncomplicated; Z72.0 Tobacco use
CPT/HCPCS: 0241U-QW; 36415; 71046-TC-FY; 71260-TC; 74177-TC; 80053; 80307; 81003; 82803; 83605; 83735; 84100; 85025; 87040; 87086; 93005; 93010; 94640; 96365; 96375; 99285-25; G0378; J1100; Q9967

== ENCOUNTER 2024-01-29 15:10 | Emergency (ER) | payer SELFPAY ==
[2024-01-29 15:32] VITALS: BMI 34.4
[2024-01-29] MEDS ORDERED: KETOROLAC TROMETHAMINE 30 MG/1 ML VIAL ONE (16:10)
[2024-01-29] MEDS: KETOROLAC TROMETHAMINE 30 MG/1 ML VIAL IM ONE (16:16)
[2024-01-29] MEDS ORDERED: DIPHTH,PERTUSS(ACELL),TET 0.5 ML DISP.SYRIN IM ONE (17:24)
[2024-01-29] MEDS: DIPHTH,PERTUSS(ACELL),TET 0.5 ML DISP.SYRIN IM ONE (17:25)
[2024-01-29 18:02] VITALS: BP 133/80; PULSE 90; RESP 20; TEMP 98.3
== END 2024-01-29 18:29 | disposition home or self-care (01) ==
LOC: JER 15:10
PROC: 3E033NZ Introduction of Analgesics, Hypnotics, Sedatives into Peripheral Vein, Percutaneous Approach (ICD-10-PCS; principal; 2024-01-29)
PROC: 0HQFXZZ Repair Right Hand Skin, External Approach (ICD-10-PCS; 2024-01-29)
PROC: 3E0234Z Introduction of Serum, Toxoid and Vaccine into Muscle, Percutaneous Approach (ICD-10-PCS; 2024-01-29)
DX: S61.011A Laceration without foreign body of right thumb without damage to nail, initial encounter (principal); S00.12XA Contusion of left eyelid and periocular area, initial encounter; H57.12 Ocular pain, left eye; M79.641 Pain in right hand; R51.9 Headache, unspecified; R68.84 Jaw pain; Y04.2XXA Assault by strike against or bumped into by another person, initial encounter; Y93.89 Activity, other specified; Y92.009 Unspecified place in unspecified non-institutional (private) residence as the place of occurrence of the external cause
CPT/HCPCS: 70450-TC; 70486-TC; 71046-TC-FY; 73130-TC-LT-FY; 73130-TC-RT-FY; 90715; 99284-25